=== PATIENT | male | born 1955 | race Caucasian/White ===

== ENCOUNTER → 2020-11-19 06:47 | Outpatient (CLI) | payer OTHER, SELFPAY ==
[2020-11-19 23:58] LABS: SARS-CoV-2 RNA PCR Negative
== END ==
PROVIDERS: PCP Family Medicine; Visit Provider Physician Assistant
DX: Z20.822 Contact with and (suspected) exposure to COVID-19 (principal)
CPT/HCPCS: C9803; U0003; U0005

== ENCOUNTER 2020-11-20 08:48 | Outpatient (CLI) | payer OTHER, SELFPAY | END 2020-11-20 08:49 | disposition home or self-care (01) | LOC: ANHCOVIDVC 08:48 | PROVIDERS: PCP Family Medicine | DX: Z23 Encounter for immunization (principal) | CPT/HCPCS: 0001A; 91300 ==

== ENCOUNTER 2020-12-11 08:42 | Outpatient (CLI) | payer OTHER, SELFPAY | END 2020-12-11 08:43 | disposition home or self-care (01) | LOC: ANHCOVIDVC 08:42 | PROVIDERS: PCP Family Medicine | DX: Z23 Encounter for immunization (principal) | CPT/HCPCS: 0002A; 91300 ==

== ENCOUNTER 2021-07-13 09:25 | Emergency (ER) | payer OTHER, SELFPAY ==
--- NOTE | ~2021-07-13 | XR_ITS ---
EXAMINATION: XR ribs RT 2V w CXR 2V DATE: 07/13/2021 10:12 INDICATION: Right-sided chest pain post fall TECHNIQUE: PA and lateral views of the chest and 3 views of the right ribs were obtained. COMPARISON: None FINDINGS: There are 13 bilateral paired ribs. Nondisplaced lateral right 9th-11th rib fractures. Elevation foca l eventration along the left hemidiaphragm. Tiny right pleural effusion with blunting at the posterio r sulcus. No focal airspace opacities, pulmonary edema, pneumothorax or left pleural effusion. Cardio mediastinal silhouette is normal. Mild lumbar levocurvature. Moderate breast and lumbar spondylosis. Multiple surgical clips in the right hemipelvis. IMPRESSION: 1. Nondisplaced lateral right ninth-11th rib fractures. 2. Tiny right pleural effusion. Reviewed, dictated and finalized at location A. [facility]
[2021-07-13 09:30] VITALS: BP 160/95; PULSE 60; RESP 14; TEMP 37; O2SAT 100
--- NOTE | 2021-07-13 10:40 | ED.BACK ---
HPI - Back Pain/Injury General Chief Complaint: Back Pain/Injury Stated Complaint: back pain s/p fall Time Seen by Provider: 07/13/21 09:53 Source: patient and family Mode of arrival: ambulatory Limitations: no limitations History of Present Illness HPI Narrative: 65-year-old with no major medical problems here with complaints of right lower rib cage pain. Patient states that he lost his balance hit against the table 2 days ago he denies any shortness of breath. Hurts every time when he moves in certain direction. MD elicited complaint: back injury Pertinent past history: recent trauma (2 days ago) Timing: constant Severity: moderate Similar Symptoms Previously: No Quality: aching Radiation: none Exacerbating factors: movement Context: fall Associated symptoms: denies other symptoms Related Data Allergies Allergy/AdvReac Type Severity Reaction Status Date / Time No Known Allergies Allergy Unverified 07/13/21 09:34 Review of Systems Review of Systems: All systems reviewed & are unremarkable except as noted in HPI and below Constitutional: Constitutional: Reports no additional constitutional complaints Eyes: Eyes: Reports no additional eye complaints ENT: Reports system reviewed and no additional complaints, except as documented Cardiovascular: Cardiovascular: Reports no additional cardiovascular complaints Respiratory: Respiratory: Reports no additional respiratory complaints Gastrointestinal: Gastrointestinal: Reports no additional gastrointestinal complaints Musculoskeletal: Musculoskeletal: Reports as per HPI Integumentary/Breasts: Skin/Breast: Reports system reviewed and no additional complaints, except as docu Neurologic: Reports system reviewed and no additional complaints, except as documented PMFSH Social History Social History Smoking status: Never smoker Alcohol intake: current Exam Narrative: GENERAL: Well-appearing, well-nourished, and in no acute distress. HEAD: Normocephalic, atraumatic. EYES: PERRLA and EOMI. NECK: Supple. CHEST: Clear to auscultation. No respiratory distress. Back A small bruise noted on the right lower rib margins , posteriorly . no vertebral point tenderness HEART: Regular rate and rhythm. No murmur heard. Normal peripheral pulses. ABDOMEN: Soft, nontender, nondistended, normal active bowel sounds. EXTREMITIES: Normal range of motion. No edema. SKIN: Warm, dry, no rash. NEURO: No focal deficits. Alert and oriented x3. PSYCH: Normal mood and affect. Course Vital Signs Vital signs: Vital Signs Temperature 37.0 C 07/13/21 09:30 Pulse Rate 60 07/13/21 09:30 Respiratory Rate 14 07/13/21 09:30 Blood Pressure 160/95 H 07/13/21 09:30 Pulse Oximetry 100 07/13/21 09:30 Temperature 37.0 C 07/13/21 09:30 Pulse Rate 60 07/13/21 09:30 Respiratory Rate 14 07/13/21 09:30 Blood Pressure 160/95 H 07/13/21 09:30 Pulse Oximetry 100 07/13/21 09:30 MDM - Back Pain/Injury Imaging Data Attestation: I personally reviewed and interpreted this imaging study as follows: My impression: rib fracture Radiologist's impression: ITS Impressions Ribs w/Chest X-Ray 07/13/21 10:26 IMPRESSION: 1. Nondisplaced lateral right ninth-11th rib fractures. 2. Tiny right pleural effusion. Discharge Plan Discharge Clinical Impression: Ribs, multiple fractures Qualifiers: Encounter type: initial encounter Fracture type: closed Laterality: right Qualified Code(s): S22.41XA - Multiple fractures of ribs, right side, initial encounter for closed fracture Patient Disposition: Home, Self-Care Condition: Stable Instructions: Antibiotic Form, Rib Fracture (ED) Additional Instructions: Take pain medication as prescribed, can also take ibuprofen as needed. Do deep breathing exercises. Prescriptions: New tramadol [Ultram] 50 mg tablet 50 mg PO Q6H PRN (Reason: pain) Qty: 20
[2021-07-13 11:15] VITALS: BP 143/88; PULSE 64; RESP 13; O2SAT 99
== END 2021-07-13 11:18 | disposition home or self-care (01) ==
PROVIDERS: Emergency Provider Family Medicine; PCP Family Medicine
DX: S22.41XA Multiple fractures of ribs, right side, initial encounter for closed fracture (principal); W01.190A Fall on same level from slipping, tripping and stumbling with subsequent striking against furniture, initial encounter
CPT/HCPCS: 71046; 71100; 99283